=== PATIENT | female | born 1985 | race Caucasian/White ===

== ENCOUNTER 2019-08-30 22:57 | Emergency (ER) | payer OTHER, MEDICAID ==
[~2019-08-30] VITALS: Ht 154.9 cm; Wt 90.7 kg
[~2019-08-30 22:57] MED LIST: LEVOTHYROXIN0.075 MG PO; NORCO 5-325 TA1 EACH PO
[2019-08-31] MEDS ORDERED: DIFLUCAN150 MG PO (00:39)
[2019-08-31] MEDS ORDERED: LAMISIL AT 1% C12 G1 TOP (00:39)
[2019-08-31] MEDS ORDERED: CYMBALTA30 MG PO (00:39)
[2019-08-31] MEDS ORDERED: VISTARIL 25 MG25 M1 PO (00:39)
[2019-08-31 01:01] LABS: ABSOLUTE BASOPHILS 0.1 thou/uL (0.0-0.2); ABSOLUTE LYMPHOCYTES 2.8 thou/uL (0.8-5.3); ABSOLUTE MONOCYTES 0.6 thou/uL (0.0-1.2); ABSOLUTE NEUTROPHILS 4.2 thou/uL (1.6-8.1); BASOPHILS 0.8 %; EOSINOPHILS 0.4 %; HEMATOCRIT 44.2 % (37.0-47.0); HEMOGLOBIN 15.3 gm/dL (12.0-15.0); LYMPHOCYTES 36.3 %; MCHC 34.5 g/dL (28.0-37.0); MCV 89.9 fL (80.0-100.0); MONOCYTES 7.9 %; MPV 7.6 fl. (7.2-11.1); NUCLEATED RBCS 0 /100WBC; PLATELET COUNT* 238 thou/uL (150-400); POLYS 54.6 %; RBC 4.92 mil/uL (4.20-5.00); RDW-CV 13.2 % (10.5-14.5); WBC 7.6 thou/uL (4.0-11.0)
[2019-08-31 01:09] LABS: URINE BILIRUBIN NEGATIVE (Negative); URINE BLOOD 1+ (Negative); URINE CLARITY CLEAR; URINE COLOR YELLOW; URINE GLUCOSE-RANDOM NEGATIVE (Negative); URINE KETONES TRACE (Negative); URINE LEUKOCYTES-REFLEX NEGATIVE (Negative); URINE NITRITE-REFLEX NEGATIVE (Negative); URINE PROTEIN TRACE (Negative); URINE SPECIFIC GRAVITY 1.025 (1.005-1.030); URINE UROBILINOGEN 0.2 E.U./dl (0.2-1.0)
[2019-08-31 01:13] LABS: CALCIUM 9.3 mg/dL (8.5-10.1); CREATININE 1.1 mg/dL (0.6-1.3); POTASSIUM 3.4 mmol/L (3.5-5.1)
[2019-08-31 01:23] LABS: ALBUMIN 4.3 g/dL (3.4-5.0); TOTAL BILIRUBIN 0.3 mg/dL (<0.1-1.0); TOTAL PROTEIN 8.5 g/dL (6.4-8.2)
[2019-08-31 01:23] LABS: AMP/METHAMP POSITIVE (Negative); BARBITURATES Negative (Negative); BENZODIAZEPINES Negative (Negative); CASTS None Seen /LPF (None Seen); COCAINE Negative (Negative); METHADONE Negative (Negative); MUCUS 4-6 Moderate strn/LPF (None Seen); OPIATES Negative (Negative); PCP Negative (Negative); SQUAMOUS >10 Many /LPF (0-3); THC Negative (Negative); URINE RBC 3-10 Few /HPF (0-2); URINE WBC-REFLEX 0-5 Rare /HPF (0-5)
[2019-08-31 01:24] LABS: CRYSTALS None Seen /LPF (None Seen)
[2019-08-31 02:24] VITALS: BP 136/98
== END 2019-08-31 02:24 | disposition home or self-care (01) ==
LOC: M.ERS 22:57
PROVIDERS: Personal Emergency Response Attendant
DX: F15.129 Other stimulant abuse with intoxication, unspecified (principal); R21 Rash and other nonspecific skin eruption; E03.9 Hypothyroidism, unspecified; Z98.890 Other specified postprocedural states

== ENCOUNTER 2020-10-05 14:48 | Emergency (ER) | payer OTHER, MEDICAID ==
[~2020-10-05] VITALS: Ht 157.5 cm; Wt 99.8 kg
[~2020-10-05 14:48] MED LIST changes: +CYMBALTA30 MG PO; +DIFLUCAN150 MG PO; +LAMISIL AT 1% C12 G1 TOP; +VISTARIL 25 MG25 M1 PO
[2020-10-05 15:02] VITALS: BP 148/91
[2020-10-05 15:34] LABS: ABSOLUTE BASOPHILS 0.1 thou/uL (0.0-0.2); ABSOLUTE EOSINOPHILS 0.1 thou/uL (0.0-0.7); ABSOLUTE LYMPHOCYTES 2.6 thou/uL (0.8-5.3); ABSOLUTE MONOCYTES 0.5 thou/uL (0.0-1.2); ABSOLUTE NEUTROPHILS 3.5 thou/uL (1.6-8.1); BASOPHILS 1.3 %; HEMATOCRIT 42.6 % (37.0-47.0); HEMOGLOBIN 14.2 gm/dL (12.0-15.0); LYMPHOCYTES 38.3 %; MCH 29.9 pg (26.0-34.0); MCHC 33.4 g/dL (28.0-37.0); MCV 89.6 fL (80.0-100.0); MONOCYTES 6.9 %; MPV 7.2 fl. (7.2-11.1); NUCLEATED RBCS 0 /100WBC; PLATELET COUNT* 239 thou/uL (150-400); POLYS 51.5 %; RBC 4.75 mil/uL (4.20-5.00); RDW-CV 13.1 % (10.5-14.5); WBC 6.9 thou/uL (4.0-11.0)
[2020-10-05 15:43] LABS: CALCIUM 9.2 mg/dL (8.5-10.1); CREATININE 0.8 mg/dL (0.6-1.3); POTASSIUM 4.2 mmol/L (3.5-5.1)
[2020-10-05 16:01] LABS: URINE BILIRUBIN NEGATIVE (Negative); URINE BLOOD TRACE (Negative); URINE CLARITY CLEAR; URINE COLOR YELLOW; URINE GLUCOSE-RANDOM NEGATIVE (Negative); URINE KETONES NEGATIVE (Negative); URINE LEUKOCYTES-REFLEX NEGATIVE (Negative); URINE NITRITE-REFLEX NEGATIVE (Negative); URINE PROTEIN NEGATIVE (Negative); URINE SPECIFIC GRAVITY <= 1.005 (1.005-1.030); URINE UROBILINOGEN 0.2 E.U./dl (0.2-1.0)
[2020-10-05] MEDS ORDERED: ZOFRAN ODT4 MG PO (17:20)
== END 2020-10-05 17:38 | disposition home or self-care (01) ==
LOC: M.ERS 14:48
PROVIDERS: Nurse Practitioner Psychiatric/Mental Health
DX: R10.13 Epigastric pain (principal); K62.5 Hemorrhage of anus and rectum; E03.9 Hypothyroidism, unspecified; Z98.890 Other specified postprocedural states

== ENCOUNTER 2021-02-05 17:19 | Emergency (ER) | payer OTHER, MEDICAID ==
[~2021-02-05] VITALS: Ht 154.9 cm; Wt 88.5 kg
[~2021-02-05 17:19] MED LIST changes: +ZOFRAN ODT4 MG PO
[2021-02-05] MEDS ORDERED: BIRTH CONTROL PILL PO (17:41)
[2021-02-05 19:08] LABS: INFLUENZA A ANTIGEN Negative (Negative); INFLUENZA B ANTIGEN Negative (Negative)
[2021-02-05 19:15] VITALS: BP 143/99
== END 2021-02-05 19:15 | disposition home or self-care (01) ==
LOC: M.ERS 17:19
PROVIDERS: Physician Assistant
DX: U07.1 COVID-19 (principal); E03.9 Hypothyroidism, unspecified; Z90.49 Acquired absence of other specified parts of digestive tract; Z79.899 Other long term (current) drug therapy